=== PATIENT | female | born 1975 ===

== ENCOUNTER → 2020-11-10 | Outpatient (CLI) | payer OTHER ==
[~2020-11-10] MED LIST: ATARAX25 MG PO; VOLTAREM 50 MG PO; ZYRTEC10 M3; ZYRTEC10 M3 PO
== END | disposition home or self-care (01) ==
LOC: LAB → ADM 12:45 → EDSTATUS 11-17 12:45 → AMB-ENDOS 11-17 12:45
PROVIDERS: ATTEND Colon & Rectal Surgery
DX: K62.5 Hemorrhage of anus and rectum (principal); R19.4 Change in bowel habit; Z12.11 Encounter for screening for malignant neoplasm of colon; Z12.12 Encounter for screening for malignant neoplasm of rectum

== ENCOUNTER → 2022-09-20 | Day surgery (SDC) | payer OTHER | END | disposition home or self-care (01) | LOC: ADM 09-15 14:30 → AMB-ENDOS 08:36 | PROVIDERS: ATTEND Colon & Rectal Surgery | DX: K62.5 Hemorrhage of anus and rectum (principal); K63.5 Polyp of colon; K64.8 Other hemorrhoids; Z20.822 Contact with and (suspected) exposure to COVID-19 ==